=== PATIENT | male | born 1995 | race African-American/Black ===

== ENCOUNTER 2017-11-13 22:14 | Emergency (ER) | payer OTHER ==
[~2017-11-13] VITALS: Ht 175.3 cm; Wt 70.3 kg
[~2017-11-13 22:14] MED LIST: CITRATE OF MAG296 ML PO; COLACE100 MG PO
[2017-11-13 22:46] LABS: URINE CLARITY CLEAR; URINE COLOR YELLOW; URINE SPECIFIC GRAVITY >= 1.030 (1.005-1.035)
[2017-11-13 22:47] LABS: URINE BILIRUBIN NEGATIVE (Negative); URINE BLOOD NEGATIVE (Negative); URINE GLUCOSE-RANDOM* NEGATIVE (Negative); URINE KETONES NEGATIVE (Negative); URINE LEUKOCYTES-REFLEX NEGATIVE (Negative); URINE NITRITE-REFLEX NEGATIVE (Negative); URINE PROTEIN (DIPSTICK) NEGATIVE (Negative); URINE UROBILINOGEN 0.2 E.U./dl (0.2-1.0)
== END 2017-11-14 00:49 | disposition home or self-care (01) ==
LOC: ER 22:14
PROVIDERS: Emergency Medicine
DX: R10.9 Unspecified abdominal pain (principal); Z98.890 Other specified postprocedural states

== ENCOUNTER 2018-10-12 15:46 | Emergency (ER) | payer OTHER ==
[~2018-10-12] VITALS: Ht 175.3 cm; Wt 70.3 kg
[2018-10-12] MEDS ORDERED: ZYRTEC10 M2 PO (16:19)
[2018-10-12] MEDS ORDERED: ALLERGY EYE DROP5 ML OPHTHALMIC (16:19)
[2018-10-12 18:26] VITALS: BP 124/75
== END 2018-10-12 17:30 | disposition home or self-care (01) ==
LOC: ER 15:46
DX: H10.13 Acute atopic conjunctivitis, bilateral (principal)

== ENCOUNTER 2018-10-29 18:06 | Emergency (ER) | payer OTHER ==
[~2018-10-29] VITALS: Ht 175.3 cm; Wt 72.6 kg
[~2018-10-29 18:06] MED LIST changes: +ALLERGY EYE DROP5 ML OPHTHALMIC; +ZYRTEC10 M2 PO
[2018-10-29 18:09] VITALS: BP 144/86
== END 2018-10-29 19:08 | disposition home or self-care (01) ==
LOC: ER 18:06
DX: Z20.2 Contact with and (suspected) exposure to infections with a predominantly sexual mode of transmission (principal)

== ENCOUNTER 2019-02-18 16:37 | Emergency (ER) | payer OTHER ==
[~2019-02-18] VITALS: Ht 175.3 cm; Wt 70.3 kg
[2019-02-18 16:37] VITALS: BP 131/66
[2019-02-18] MEDS ORDERED: ERYTHROMYCIN E3.5 G3 OPHTHALMIC (17:30)
== END 2019-02-18 17:30 | disposition home or self-care (01) ==
LOC: ER 16:37
DX: J30.9 Allergic rhinitis, unspecified (principal); H10.33 Unspecified acute conjunctivitis, bilateral

== ENCOUNTER 2019-05-27 16:39 | Emergency (ER) | payer OTHER ==
[~2019-05-27] VITALS: Ht 175.3 cm; Wt 70.3 kg
[~2019-05-27 16:39] MED LIST changes: +ERYTHROMYCIN E3.5 G3 OPHTHALMIC
[2019-05-27 16:54] VITALS: BP 127/70
[2019-05-27] MEDS ORDERED: PROTONIX40 M1 PO (17:06)
== END 2019-05-27 17:06 | disposition home or self-care (01) ==
LOC: ER 16:39
DX: K21.9 Gastro-esophageal reflux disease without esophagitis (principal); Z98.890 Other specified postprocedural states

== ENCOUNTER 2019-06-06 18:33 | Emergency (ER) | payer OTHER ==
[~2019-06-06] VITALS: Ht 167.6 cm; Wt 72.6 kg
[~2019-06-06 18:33] MED LIST changes: +PROTONIX40 M1 PO
[2019-06-06] MEDS ORDERED: CYCLOBENZAPRINE5 MG PO (21:03)
[2019-06-06] MEDS ORDERED: MOBIC15 MG PO (21:03)
[2019-06-06 21:30] VITALS: BP 118/68
== END 2019-06-06 21:30 | disposition home or self-care (01) ==
LOC: ER 18:33
DX: S13.4XXA Sprain of ligaments of cervical spine, initial encounter (principal); R39.15 Urgency of urination; R51 Headache; V49.59XA Passenger injured in collision with other motor vehicles in traffic accident, initial encounter; Y93.89 Activity, other specified; Y92.488 Other paved roadways as the place of occurrence of the external cause; Y99.8 Other external cause status

== ENCOUNTER 2019-07-13 16:02 | Emergency (ER) | payer OTHER ==
[~2019-07-13] VITALS: Ht 172.7 cm; Wt 65.8 kg
[~2019-07-13 16:02] MED LIST changes: +CYCLOBENZAPRINE5 MG PO; +MOBIC15 MG PO
[2019-07-13 16:26] LABS: URINE BILIRUBIN NEGATIVE (Negative); URINE BLOOD NEGATIVE (Negative); URINE CLARITY CLEAR; URINE COLOR YELLOW; URINE GLUCOSE-RANDOM* NEGATIVE (Negative); URINE KETONES NEGATIVE (Negative); URINE LEUKOCYTES-REFLEX NEGATIVE (Negative); URINE NITRITE-REFLEX NEGATIVE (Negative); URINE PROTEIN (DIPSTICK) TRACE (Negative)
[2019-07-13 16:29] VITALS: BP 127/75
== END 2019-07-13 18:16 | disposition home or self-care (01) ==
LOC: ER 16:02
PROVIDERS: Emergency Medicine; Nurse Practitioner Family
DX: N34.2 Other urethritis (principal)

== ENCOUNTER 2019-07-18 06:11 | Emergency (ER) | payer OTHER ==
[~2019-07-18] VITALS: Ht 175.3 cm; Wt 70.3 kg
[2019-07-18] MEDS ORDERED: NORCO 5-325 TA1 EAC1 PO (07:19)
[2019-07-18] MEDS ORDERED: MOBIC15 MG PO (07:19)
[2019-07-18 07:20] VITALS: BP 121/59
== END 2019-07-18 07:36 | disposition home or self-care (01) ==
LOC: ER 06:11
DX: S39.012A Strain of muscle, fascia and tendon of lower back, initial encounter (principal); Y93.67 Activity, basketball; Y93.89 Activity, other specified; Y92.89 Other specified places as the place of occurrence of the external cause; Y99.8 Other external cause status

== ENCOUNTER 2019-09-17 21:55 | Emergency (ER) | payer OTHER ==
[~2019-09-17] VITALS: Ht 175.3 cm; Wt 68.0 kg
[~2019-09-17 21:55] MED LIST changes: +NORCO 5-325 TA1 EAC1 PO
[2019-09-17 21:56] VITALS: BP 132/86
[2019-09-17 22:23] LABS: URINE BILIRUBIN NEGATIVE (Negative); URINE BLOOD NEGATIVE (Negative); URINE CLARITY CLEAR; URINE COLOR YELLOW; URINE GLUCOSE-RANDOM* NEGATIVE (Negative); URINE KETONES NEGATIVE (Negative); URINE LEUKOCYTES-REFLEX TRACE (Negative); URINE NITRITE-REFLEX NEGATIVE (Negative); URINE PROTEIN (DIPSTICK) NEGATIVE (Negative)
[2019-09-17] MEDS ORDERED: ZOVIRAX400 MG PO (22:44)
[2019-09-19 19:06] LABS: HSV 2 IgG <0.91 index (0.00-0.90)
== END 2019-09-17 22:48 | disposition home or self-care (01) ==
LOC: ER 21:55
PROVIDERS: Emergency Medicine Emergency Medical Services
DX: L29.9 Pruritus, unspecified (principal); Z11.3 Encounter for screening for infections with a predominantly sexual mode of transmission

== ENCOUNTER 2020-03-14 16:16 | Emergency (ER) | payer OTHER ==
[~2020-03-14] VITALS: Ht 175.3 cm; Wt 68.0 kg
[~2020-03-14 16:16] MED LIST changes: +ZOVIRAX400 MG PO
[2020-03-14 16:22] VITALS: BP 138/73
[2020-03-14] MEDS ORDERED: PATADAY5 ML OPHTHALMIC (16:40)
[2020-03-14] MEDS ORDERED: ERYTHROMYCIN E3.5 G3 OPHTHALMIC (16:40)
== END 2020-03-14 17:59 | disposition home or self-care (01) ==
LOC: ER 16:16
DX: H10.11 Acute atopic conjunctivitis, right eye (principal); R09.81 Nasal congestion

== ENCOUNTER 2021-09-16 20:19 | Emergency (ER) | payer OTHER ==
[~2021-09-16] VITALS: Ht 165.1 cm; Wt 61.2 kg
[~2021-09-16 20:19] MED LIST changes: +PATADAY5 ML OPHTHALMIC
[2021-09-16] MEDS ORDERED: NOHOMEMEDICATIONS (20:30)
[2021-09-16 21:14] LABS: URINE BILIRUBIN NEGATIVE (Negative); URINE BLOOD NEGATIVE (Negative); URINE CLARITY CLEAR; URINE COLOR YELLOW; URINE GLUCOSE-RANDOM* NEGATIVE (Negative); URINE KETONES NEGATIVE (Negative); URINE LEUKOCYTES-REFLEX NEGATIVE (Negative); URINE NITRITE-REFLEX NEGATIVE (Negative); URINE PROTEIN (DIPSTICK) NEGATIVE (Negative)
[2021-09-17 00:48] VITALS: BP 142/84
== END 2021-09-17 00:53 | disposition home or self-care (01) ==
LOC: ER 20:19
PROVIDERS: Physician Assistant
DX: N48.9 Disorder of penis, unspecified (principal)